=== PATIENT | female | born 1960 | race Caucasian/White ===

== ENCOUNTER 2020-12-13 11:45 | Emergency (ER) | payer OTHER ==
[2020-12-13 12:07] VITALS: BP 121/51; PULSE 92; TEMP 99; BMI 22.8
[2020-12-13 12:36] LABS: EPITHELIAL CELLS FEW /hpf
== END 2020-12-13 12:49 | disposition home or self-care (01) ==
LOC: FER 11:45
DX: N76.1 Subacute and chronic vaginitis (principal)
CPT/HCPCS: 81003; 81015; 87086; 99283-25